=== PATIENT | female | born 1940 | race Asian ===

== ENCOUNTER 2017-09-26 16:41 | Emergency (ER) | payer MEDICARE, OTHER ==
[2017-09-26] MEDS: LIDOCAINE/MYLANTA 40 ML BTL PO (20:09)
[2017-09-26] MEDS: FAMOTIDINE 20 MG TAB PO (20:09)
[2017-09-26] MEDS: BELLADONNA/PHENOBARBITAL TAB PO (20:10)
[2017-09-26 20:16] LABS: ADD MAN DIFF? NO
[2017-09-26 20:19] LABS: BASOPHIL # 0.1 10^3/ul (0.0-0.1); BASOPHILS % 0.4 % (0.0-2.0); EOSINOPHILS # 0.2 10^3/ul (0.0-0.5); EOSINOPHILS % 2.1 % (0.0-7.0); HEMATOCRIT 44.9 % (37.0-47.0); HEMOGLOBIN 16.4 g/dl (12.0-16.0); LYMPHOCYTES # 2.2 10^3/ul (0.8-2.9); LYMPHOCYTES % 19.2 % (15.0-51.0); MEAN CORPUSCULAR HEMOGLOBIN 32.2 pg (29.0-33.0); MEAN CORPUSCULAR HGB CONC 36.5 g/dl (32.0-37.0); MEAN CORPUSCULAR VOLUME 88.2 fl (82.0-101.0); MEAN PLATELET VOLUME 9.6 fl (7.4-10.4); MONOCYTE # 0.7 10^3/ul (0.3-0.9); MONOCYTES % 6.3 % (0.0-11.0); NEUTROPHIL # 8.1 10^3/ul (1.6-7.5); NEUTROPHILS % 71.6 % (39.0-77.0); PLATELET COUNT 331 10^3/UL (140-415); RED BLOOD COUNT 5.09 10^6/ul (4.20-5.40); RED CELL DISTRIBUTION WIDTH 11.4 % (11.5-14.5)
[2017-09-26 20:19] LABS: WHITE BLOOD COUNT 11.3 10^3/ul (4.8-10.8)
[2017-09-26] MEDS: SOD CHLORIDE 0.9% 1,000 ML IV (20:25)
[2017-09-26] MEDS: ONDANSETRON 4 MG INJ IV (20:25)
[2017-09-26] MEDS: KETOROLAC 15 MG INJ IV (20:26)
[2017-09-26 20:32] LABS: ADD UMIC YES; UR ASCORBIC ACID NEGATIVE (NEGATIVE); UR BILIRUBIN (Dip) NEGATIVE (NEGATIVE); UR BLOOD (Dip) NEGATIVE (NEGATIVE); UR CLARITY CLEAR (CLEAR); UR COLOR YELLOW (YELLOW); UR GLUCOSE (Dip) NEGATIVE (NEGATIVE); UR KETONES (Dip) NEGATIVE (NEGATIVE); UR LEUKOCYTE ESTERASE (Dip) 2+ Leu/ul (NEGATIVE); UR NITRITE (Dip) NEGATIVE (NEGATIVE); UR RBC 2 /HPF (0-5); UR SPECIFIC GRAVITY (Dip) 1.017 (1.003-1.030); UR TOTAL PROTEIN (Dip) NEGATIVE (NEGATIVE); UR UROBILINOGEN (Dip) NEGATIVE (NEGATIVE); UR WBC 1 /HPF (0-5)
[2017-09-26 20:40] LABS: ALANINE AMINOTRANSFERASE 20 IU/L (13-69); ALBUMIN/GLOBULIN RATIO 1.02; ALKALINE PHOSPHATASE 106 IU/L (42-121); ANION GAP 18 (8-16); ASPARTATE AMINO TRANSFERASE 32 IU/L (15-46); BILIRUBIN,INDIRECT 0.5 mg/dl (0-1.1); BILIRUBIN,TOTAL 0.5 mg/dl (0.2-1.3); BLOOD UREA NITROGEN 19 mg/dl (7-20); CALCIUM 10.1 mg/dl (8.4-10.2); CARBON DIOXIDE 32 mmol/L (21-31); CHLORIDE 79 mmol/L (97-110); CREATININE 0.76 mg/dl (0.44-1.00); GLUCOSE 139 mg/dl (70-220); LIPASE 71 U/L (23-300); POTASSIUM 4.1 mmol/L (3.5-5.1); SODIUM 125 mmol/L (135-144); TOTAL PROTEIN 9.9 g/dl (6.1-8.1)
[2017-09-26 20:55] LABS: TROPONIN-I < 0.012 ng/ml (0.00-0.12)
[2017-09-26] MEDS: CEPHALEXIN 500 MG CAP PO (22:15)
== END 2017-09-26 22:36 | disposition home or self-care (01) ==
LOC: E/R 22:36
DX: N39.0 Urinary tract infection, site not specified (principal); I10 Essential (primary) hypertension; E11.9 Type 2 diabetes mellitus without complications; I25.10 Atherosclerotic heart disease of native coronary artery without angina pectoris; Z79.84 Long term (current) use of oral hypoglycemic drugs
CPT/HCPCS: 36415; 71045; 80053; 81001; 83690; 84484; 85025; 93005; 96374; 96375; 99285-25

== ENCOUNTER 2017-11-25 22:40 | Emergency (ER) | payer MEDICARE, OTHER ==
[2017-11-26] MEDS: hydrALAzine 20 MG INJ IV (00:46)
[2017-11-26 01:16] LABS: ADD MAN DIFF? NO
[2017-11-26 01:23] LABS: WHITE BLOOD COUNT 7.5 10^3/ul (4.8-10.8)
[2017-11-26 01:23] LABS: BASOPHIL # 0.1 10^3/ul (0.0-0.1); BASOPHILS % 1.1 % (0.0-2.0); EOSINOPHILS # 0.7 10^3/ul (0.0-0.5); EOSINOPHILS % 9.7 % (0.0-7.0); HEMATOCRIT 43.7 % (37.0-47.0); HEMOGLOBIN 14.7 g/dl (12.0-16.0); LYMPHOCYTES # 2.2 10^3/ul (0.8-2.9); LYMPHOCYTES % 29.9 % (15.0-51.0); MEAN CORPUSCULAR HEMOGLOBIN 31.8 pg (29.0-33.0); MEAN CORPUSCULAR HGB CONC 33.6 g/dl (32.0-37.0); MEAN CORPUSCULAR VOLUME 94.6 fl (82.0-101.0); MEAN PLATELET VOLUME 9.8 fl (7.4-10.4); MONOCYTE # 0.5 10^3/ul (0.3-0.9); MONOCYTES % 7.1 % (0.0-11.0); NEUTROPHIL # 3.9 10^3/ul (1.6-7.5); NEUTROPHILS % 51.9 % (39.0-77.0); PLATELET COUNT 299 10^3/UL (140-415); RED BLOOD COUNT 4.62 10^6/ul (4.20-5.40); RED CELL DISTRIBUTION WIDTH 12.4 % (11.5-14.5)
[2017-11-26 01:36] LABS: ALANINE AMINOTRANSFERASE 24 IU/L (13-69); ALBUMIN 4.5 g/dl (3.3-4.9); ALBUMIN/GLOBULIN RATIO 1.12; ALKALINE PHOSPHATASE 122 IU/L (42-121); ANION GAP 14 (8-16); ASPARTATE AMINO TRANSFERASE 25 IU/L (15-46); BILIRUBIN,INDIRECT 0.1 mg/dl (0-1.1); BILIRUBIN,TOTAL 0.1 mg/dl (0.2-1.3); BLOOD UREA NITROGEN 9 mg/dl (7-20); CALCIUM 9.6 mg/dl (8.4-10.2); CARBON DIOXIDE 30 mmol/L (21-31); CHLORIDE 103 mmol/L (97-110); CREATININE 0.75 mg/dl (0.44-1.00); GLUCOSE 124 mg/dl (70-220); POTASSIUM 3.5 mmol/L (3.5-5.1); SODIUM 143 mmol/L (135-144); TOTAL PROTEIN 8.5 g/dl (6.1-8.1)
[2017-11-26 01:47] LABS: B-TYPE NATRIURETIC PEPTIDE 219 PG/ML (0-450); TROPONIN-I < 0.010 ng/ml (0.000-0.120)
[2017-11-26] MEDS ORDERED: MECLIZINE 25 MG TAB PO (05:00)
== END 2017-11-26 04:33 | disposition home or self-care (01) ==
LOC: E/R 22:40
DX: I16.0 Hypertensive urgency (principal); I10 Essential (primary) hypertension; E11.9 Type 2 diabetes mellitus without complications; Z79.84 Long term (current) use of oral hypoglycemic drugs
CPT/HCPCS: 36415; 70450; 71045; 80053; 83880; 84484; 85025; 93005; 96374; 99285-25

== ENCOUNTER 2018-08-27 02:59 | Observation (INO) | payer MEDICARE, OTHER ==
[2018-08-27 06:56] LABS: ADD MAN DIFF? NO
[2018-08-27 06:59] LABS: BASOPHIL # 0.1 10^3/ul (0.0-0.1); EOSINOPHILS # 0.3 10^3/ul (0.0-0.5); EOSINOPHILS % 4.1 % (0.0-7.0); HEMATOCRIT 46.4 % (37.0-47.0); HEMOGLOBIN 15.9 g/dl (12.0-16.0); LYMPHOCYTES # 1.9 10^3/ul (0.8-2.9); LYMPHOCYTES % 26.7 % (15.0-51.0); MEAN CORPUSCULAR HEMOGLOBIN 31.7 pg (29.0-33.0); MEAN CORPUSCULAR HGB CONC 34.3 g/dl (32.0-37.0); MEAN CORPUSCULAR VOLUME 92.6 fl (82.0-101.0); MEAN PLATELET VOLUME 9.4 fl (7.4-10.4); MONOCYTE # 0.5 10^3/ul (0.3-0.9); MONOCYTES % 7.6 % (0.0-11.0); NEUTROPHIL # 4.3 10^3/ul (1.6-7.5); NEUTROPHILS % 60.3 % (39.0-77.0); PLATELET COUNT 337 10^3/UL (140-415); RED BLOOD COUNT 5.01 10^6/ul (4.20-5.40)
[2018-08-27 06:59] LABS: WHITE BLOOD COUNT 7.1 10^3/ul (4.8-10.8)
[2018-08-27 07:00] LABS: ADD UMIC YES; UR ASCORBIC ACID NEGATIVE (NEGATIVE); UR BILIRUBIN (Dip) NEGATIVE (NEGATIVE); UR BLOOD (Dip) 1+ mg/dL (NEGATIVE); UR CLARITY CLEAR (CLEAR); UR COLOR STRAW (YELLOW); UR GLUCOSE (Dip) NEGATIVE (NEGATIVE); UR KETONES (Dip) NEGATIVE (NEGATIVE); UR LEUKOCYTE ESTERASE (Dip) 2+ Leu/ul (NEGATIVE); UR NITRITE (Dip) NEGATIVE (NEGATIVE); UR RBC 3 /HPF (0-5); UR SPECIFIC GRAVITY (Dip) 1.006 (1.003-1.030); UR TOTAL PROTEIN (Dip) NEGATIVE (NEGATIVE); UR UROBILINOGEN (Dip) NEGATIVE (NEGATIVE); UR WBC 1 /HPF (0-5)
[2018-08-27 07:20] LABS: ALANINE AMINOTRANSFERASE 31 IU/L (13-69); ALBUMIN 4.9 g/dl (3.3-4.9); ALBUMIN/GLOBULIN RATIO 1.11; ALKALINE PHOSPHATASE 143 IU/L (42-121); ANION GAP 13 (5-13); ASPARTATE AMINO TRANSFERASE 34 IU/L (15-46); BILIRUBIN,INDIRECT 0.5 mg/dl (0-1.1); BILIRUBIN,TOTAL 0.5 mg/dl (0.2-1.3); BLOOD UREA NITROGEN 11 mg/dl (7-20); CALCIUM 10.3 mg/dl (8.4-10.2); CARBON DIOXIDE 31 mmol/L (21-31); CHLORIDE 93 mmol/L (97-110); CREATININE 0.79 mg/dl (0.44-1.00); GLUCOSE 124 mg/dl (70-220); LIPASE 75 U/L (23-300); POTASSIUM 4.5 mmol/L (3.5-5.1); SODIUM 137 mmol/L (135-144); TOTAL PROTEIN 9.3 g/dl (6.1-8.1)
[2018-08-27 07:31] LABS: TROPONIN-I < 0.012 ng/ml (0.000-0.120)
[2018-08-27] MEDS: DILTIAZEM 25 MG INJ IV (07:56)
[2018-08-27] MEDS ORDERED: NACL 0.9% 3 ML SYG IV (13:30)
[2018-08-27] MEDS ORDERED: DOCUSATE SODIUM 100 MG CAP PO (13:30)
[2018-08-27] MEDS ORDERED: ONDANSETRON 4 MG INJ IV (13:30)
[2018-08-27] MEDS ORDERED: DILTIAZEM 25 MG INJ IV ×2 (13:30→17:30)
[2018-08-27] MEDS ORDERED: DEXTROSE 50% 50 ML SYRINGE IV ×2 (14:00)
[2018-08-27] MEDS ORDERED: GLUCAGON 1 MG INJ IM (14:00)
[2018-08-27] MEDS ORDERED: GLUCOSE GEL 15 GRAM TUBE BUCCAL (14:00)
[2018-08-27] MEDS ORDERED: GLUCOSE GEL 15 GRAM TUBE PO ×2 (14:00)
[2018-08-27] MEDS: PANTOPRAZOLE 40 MG INJ IV (14:22)
[2018-08-27 15:25] LABS: CREATINE KINASE 41 IU/L (23-200)
[2018-08-27 15:38] LABS: CK INDEX 1.3; CK-MB 0.55 ng/ml (0.0-2.4); TROPONIN-I < 0.012 ng/ml (0.000-0.120)
[2018-08-27] MEDS: INSULIN ASPART [NOVOLOG] 3 ML PEN SC ×2 (18:00→22:00)
[2018-08-27 18:12] LABS: B-TYPE NATRIURETIC PEPTIDE 859 PG/ML (0-450)
[2018-08-27] MEDS: hydrALAzine 20 MG INJ IV (18:45)
[2018-08-27] MEDS: SOD CHLORIDE 0.9% 250 ML IV (19:23)
[2018-08-27] MEDS: ENOXAPARIN 60 MG/0.6 ML SYG SC (21:10)
[2018-08-27 22:03] LABS: CREATINE KINASE 38 IU/L (23-200)
[2018-08-27 22:16] LABS: CK INDEX 1.3; TROPONIN-I < 0.012 ng/ml (0.000-0.120)
[2018-08-28] MEDS: ACCU-CHEK XX (02:00)
[2018-08-28 05:40] LABS: ADD MAN DIFF? NO
[2018-08-28 05:52] LABS: WHITE BLOOD COUNT 11.2 10^3/ul (4.8-10.8)
[2018-08-28 05:52] LABS: BASOPHILS % 0.4 % (0.0-2.0); EOSINOPHILS % 0.1 % (0.0-7.0); HEMATOCRIT 41.1 % (37.0-47.0); HEMOGLOBIN 14.1 g/dl (12.0-16.0); LYMPHOCYTES # 1.8 10^3/ul (0.8-2.9); LYMPHOCYTES % 15.7 % (15.0-51.0); MEAN CORPUSCULAR HEMOGLOBIN 31.8 pg (29.0-33.0); MEAN CORPUSCULAR HGB CONC 34.3 g/dl (32.0-37.0); MEAN CORPUSCULAR VOLUME 92.8 fl (82.0-101.0); MEAN PLATELET VOLUME 9.8 fl (7.4-10.4); MONOCYTE # 0.5 10^3/ul (0.3-0.9); NEUTROPHIL # 8.9 10^3/ul (1.6-7.5); NEUTROPHILS % 79.4 % (39.0-77.0); PLATELET COUNT 322 10^3/UL (140-415); RED BLOOD COUNT 4.43 10^6/ul (4.20-5.40); RED CELL DISTRIBUTION WIDTH 12.3 % (11.5-14.5)
[2018-08-28] MEDS: PANTOPRAZOLE 40 MG INJ IV (06:01)
[2018-08-28 06:26] LABS: CHOL/HDL RATIO 4.2 RATIO; CHOLESTEROL 204 mg/dl (100-200); HDL CHOLESTEROL 48 mg/dl (33-92); LDL CHOLESTEROL,CALCULATED 132 mg/dl; MAGNESIUM 1.9 mg/dl (1.7-2.5); TRIGLYCERIDES 118 mg/dl (0-149)
[2018-08-28 06:33] LABS: ALANINE AMINOTRANSFERASE 32 IU/L (13-69); ALBUMIN 4.1 g/dl (3.3-4.9); ALKALINE PHOSPHATASE 92 IU/L (42-121); ANION GAP 9 (5-13); ASPARTATE AMINO TRANSFERASE 23 IU/L (15-46); BILIRUBIN,INDIRECT 0.6 mg/dl (0-1.1); BILIRUBIN,TOTAL 0.6 mg/dl (0.2-1.3); BLOOD UREA NITROGEN 15 mg/dl (7-20); CALCIUM 9.5 mg/dl (8.4-10.2); CARBON DIOXIDE 28 mmol/L (21-31); CHLORIDE 100 mmol/L (97-110); CREATININE 0.96 mg/dl (0.44-1.00); GLUCOSE 129 mg/dl (70-220); POTASSIUM 4.5 mmol/L (3.5-5.1); SODIUM 137 mmol/L (135-144); TOTAL PROTEIN 7.5 g/dl (6.1-8.1)
[2018-08-28 06:39] LABS: THYROID STIMULATING HORMONE 0.902 MIU/L (0.465-4.680)
[2018-08-28] MEDS: INSULIN ASPART [NOVOLOG] 3 ML PEN SC ×4 (07:55→21:00)
[2018-08-28] MEDS ORDERED: BISACODYL (EC) 5 MG TAB PO ×2 (09:00→09:41)
[2018-08-28] MEDS: POLYETHYLENE GLYCOL 17 GM PACKET PO (09:51)
[2018-08-28] MEDS: METOPROLOL (XL) 25 MG TAB PO (09:52)
[2018-08-28] MEDS: ALLOPURINOL 300 MG TAB PO (09:52)
[2018-08-28] MEDS: PEG/ELECTROLYTES 4L BTL PO ×2 (18:02→20:00)
[2018-08-28] MEDS: BISACODYL (EC) 5 MG TAB PO ×2 (18:02→21:28)
[2018-08-28] MEDS: FAMOTIDINE 20 MG INJ IV (21:28)
[2018-08-29] MEDS: ACCU-CHEK XX (01:37)
[2018-08-29 05:42] LABS: ADD MAN DIFF? NO
[2018-08-29 05:46] LABS: BASOPHIL # 0.1 10^3/ul (0.0-0.1); BASOPHILS % 1.2 % (0.0-2.0); EOSINOPHILS # 0.4 10^3/ul (0.0-0.5); EOSINOPHILS % 6.8 % (0.0-7.0); HEMATOCRIT 40.2 % (37.0-47.0); HEMOGLOBIN 13.4 g/dl (12.0-16.0); LYMPHOCYTES # 1.8 10^3/ul (0.8-2.9); LYMPHOCYTES % 32.2 % (15.0-51.0); MEAN CORPUSCULAR HEMOGLOBIN 31.7 pg (29.0-33.0); MEAN CORPUSCULAR HGB CONC 33.3 g/dl (32.0-37.0); MEAN PLATELET VOLUME 9.4 fl (7.4-10.4); MONOCYTE # 0.5 10^3/ul (0.3-0.9); MONOCYTES % 8.9 % (0.0-11.0); NEUTROPHIL # 2.9 10^3/ul (1.6-7.5); NEUTROPHILS % 50.7 % (39.0-77.0); PLATELET COUNT 287 10^3/UL (140-415); RED BLOOD COUNT 4.23 10^6/ul (4.20-5.40); RED CELL DISTRIBUTION WIDTH 12.4 % (11.5-14.5)
[2018-08-29 05:46] LABS: WHITE BLOOD COUNT 5.6 10^3/ul (4.8-10.8)
[2018-08-29 06:04] LABS: INR 0.86; PROTIME 11.8 Sec (11.9-14.9); PT RATIO 0.9
[2018-08-29] MEDS: INSULIN ASPART [NOVOLOG] 3 ML PEN SC ×4 (08:00→21:00)
[2018-08-29] MEDS: POLYETHYLENE GLYCOL 17 GM PACKET PO (08:05)
[2018-08-29] MEDS: METOPROLOL (XL) 25 MG TAB PO (08:06)
[2018-08-29] MEDS: ALLOPURINOL 300 MG TAB PO (08:06)
[2018-08-29] MEDS: FAMOTIDINE 20 MG INJ IV ×2 (08:08→21:20)
[2018-08-29] MEDS ORDERED: ONDANSETRON 4 MG INJ IV (11:30)
[2018-08-29] MEDS ORDERED: HYDROmorphONE 1 MG/5 ML IV SYRINGE IV (11:30)
[2018-08-29] MEDS: CEFTRIAXONE 1 GM/50 ML (PMX) 50 ML IVPB (14:23)
[2018-08-29] MEDS: EPHEDrine 25 MG/5 ML SYG (19:15)
[2018-08-29] MEDS: PROPOFOL 40 ML (19:15)
[2018-08-29] MEDS: LIDOCAINE 2% (SDV) 5 ML INJ (19:16)
[2018-08-29] MEDS: APIXABAN 5 MG TABLET PO (21:20)
[2018-08-30] MEDS: ACCU-CHEK XX (01:42)
[2018-08-30 05:55] LABS: ADD MAN DIFF? NO
[2018-08-30 06:01] LABS: BASOPHIL # 0.1 10^3/ul (0.0-0.1); BASOPHILS % 1.4 % (0.0-2.0); EOSINOPHILS # 0.4 10^3/ul (0.0-0.5); EOSINOPHILS % 6.5 % (0.0-7.0); HEMATOCRIT 40.6 % (37.0-47.0); HEMOGLOBIN 13.4 g/dl (12.0-16.0); LYMPHOCYTES # 1.9 10^3/ul (0.8-2.9); LYMPHOCYTES % 29.3 % (15.0-51.0); MEAN CORPUSCULAR HEMOGLOBIN 31.8 pg (29.0-33.0); MEAN CORPUSCULAR VOLUME 96.4 fl (82.0-101.0); MEAN PLATELET VOLUME 9.7 fl (7.4-10.4); MONOCYTE # 0.5 10^3/ul (0.3-0.9); NEUTROPHIL # 3.6 10^3/ul (1.6-7.5); NEUTROPHILS % 55.6 % (39.0-77.0); PLATELET COUNT 286 10^3/UL (140-415); RED BLOOD COUNT 4.21 10^6/ul (4.20-5.40); RED CELL DISTRIBUTION WIDTH 12.4 % (11.5-14.5)
[2018-08-30 06:01] LABS: WHITE BLOOD COUNT 6.5 10^3/ul (4.8-10.8)
[2018-08-30 06:36] LABS: ANION GAP 10 (5-13); BLOOD UREA NITROGEN 14 mg/dl (7-20); CALCIUM 9.3 mg/dl (8.4-10.2); CARBON DIOXIDE 27 mmol/L (21-31); CHLORIDE 104 mmol/L (97-110); CREATININE 0.89 mg/dl (0.44-1.00); GLUCOSE 145 mg/dl (70-220); POTASSIUM 4.1 mmol/L (3.5-5.1); SODIUM 141 mmol/L (135-144)
[2018-08-30] MEDS: INSULIN ASPART [NOVOLOG] 3 ML PEN SC ×2 (08:00→12:00)
[2018-08-30] MEDS: ALLOPURINOL 300 MG TAB PO (08:03)
[2018-08-30] MEDS: POLYETHYLENE GLYCOL 17 GM PACKET PO (08:03)
[2018-08-30] MEDS: METOPROLOL (XL) 25 MG TAB PO (08:04)
[2018-08-30] MEDS: APIXABAN 5 MG TABLET PO (08:04)
[2018-08-30] MEDS: FAMOTIDINE 20 MG INJ IV (08:05)
[2018-08-30] MEDS ORDERED: ENOXAPARIN 40 MG/0.4 ML SYG SC (09:00)
[2018-08-30 11:04] LABS: HEMOGLOBIN A1C 6.3 % (0-5.9)
== END 2018-08-30 14:00 | disposition home or self-care (01) ==
LOC: E/R 02:59 → 6WM 10:57
DX: I48.0 Paroxysmal atrial fibrillation (principal); K29.30 Chronic superficial gastritis without bleeding; I10 Essential (primary) hypertension; E78.5 Hyperlipidemia, unspecified; M10.9 Gout, unspecified; E11.9 Type 2 diabetes mellitus without complications; Z79.01 Long term (current) use of anticoagulants; E83.52 Hypercalcemia; R42 Dizziness and giddiness; K59.00 Constipation, unspecified; E66.3 Overweight; Z68.26 Body mass index [BMI] 26.0-26.9, adult
CPT/HCPCS: 36415; 74176; 74181; 80048; 80053; 80061; 81001; 82550; 82553; 82962; 83036; 83690; 83735; 83880; 84100; 84443; 84484; 85025; 85610; 85730; 88305; 88312; 93005; 93306; 99291-25; G0378

== ENCOUNTER 2018-10-12 22:20 | Emergency (ER) | payer MEDICARE, OTHER ==
[2018-10-12] MEDS: morphine 4 MG/ML VIAL IV ×2 (22:48→23:08)
[2018-10-12] MEDS: ONDANSETRON 4 MG INJ IV (22:48)
[2018-10-12 22:54] LABS: ADD MAN DIFF? NO
[2018-10-12 22:56] LABS: WHITE BLOOD COUNT 8.2 10^3/ul (4.8-10.8)
[2018-10-12 22:56] LABS: BASOPHIL # 0.1 10^3/ul (0.0-0.1); BASOPHILS % 0.6 % (0.0-2.0); EOSINOPHILS # 0.4 10^3/ul (0.0-0.5); EOSINOPHILS % 4.8 % (0.0-7.0); HEMATOCRIT 37.3 % (37.0-47.0); LYMPHOCYTES # 2.1 10^3/ul (0.8-2.9); LYMPHOCYTES % 25.1 % (15.0-51.0); MEAN CORPUSCULAR HEMOGLOBIN 31.4 pg (29.0-33.0); MEAN CORPUSCULAR HGB CONC 34.9 g/dl (32.0-37.0); MEAN CORPUSCULAR VOLUME 90.1 fl (82.0-101.0); MEAN PLATELET VOLUME 9.4 fl (7.4-10.4); MONOCYTE # 0.7 10^3/ul (0.3-0.9); MONOCYTES % 8.7 % (0.0-11.0); NEUTROPHIL # 4.9 10^3/ul (1.6-7.5); NEUTROPHILS % 60.2 % (39.0-77.0); PLATELET COUNT 297 10^3/UL (140-415); RED BLOOD COUNT 4.14 10^6/ul (4.20-5.40); RED CELL DISTRIBUTION WIDTH 11.2 % (11.5-14.5)
[2018-10-12 23:19] LABS: INR 0.97
[2018-10-12 23:22] LABS: ALANINE AMINOTRANSFERASE 25 IU/L (13-69); ALBUMIN 4.1 g/dl (3.3-4.9); ALBUMIN/GLOBULIN RATIO 1.28; ALKALINE PHOSPHATASE 82 IU/L (42-121); ANION GAP 10 (5-13); ASPARTATE AMINO TRANSFERASE 22 IU/L (15-46); BILIRUBIN,INDIRECT 0.4 mg/dl (0-1.1); BILIRUBIN,TOTAL 0.4 mg/dl (0.2-1.3); BLOOD UREA NITROGEN 14 mg/dl (7-20); CALCIUM 9.2 mg/dl (8.4-10.2); CARBON DIOXIDE 30 mmol/L (21-31); CHLORIDE 85 mmol/L (97-110); CREATININE 0.82 mg/dl (0.44-1.00); GLUCOSE 154 mg/dl (70-220); LIPASE 39 U/L (23-300); POTASSIUM 3.8 mmol/L (3.5-5.1); SODIUM 125 mmol/L (135-144); TOTAL PROTEIN 7.3 g/dl (6.1-8.1)
[2018-10-12 23:33] LABS: TROPONIN-I < 0.012 ng/ml (0.000-0.120)
[2018-10-13 00:51] LABS: ADD UMIC YES; UR ASCORBIC ACID NEGATIVE (NEGATIVE); UR BACTERIA FEW /HPF (NONE SEEN); UR BILIRUBIN (Dip) NEGATIVE (NEGATIVE); UR BLOOD (Dip) 1+ mg/dL (NEGATIVE); UR CLARITY CLEAR (CLEAR); UR COLOR STRAW (YELLOW); UR GLUCOSE (Dip) NEGATIVE (NEGATIVE); UR KETONES (Dip) NEGATIVE (NEGATIVE); UR LEUKOCYTE ESTERASE (Dip) 1+ Leu/ul (NEGATIVE); UR NITRITE (Dip) NEGATIVE (NEGATIVE); UR RBC 1 /HPF (0-5); UR SPECIFIC GRAVITY (Dip) 1.005 (1.003-1.030); UR TOTAL PROTEIN (Dip) NEGATIVE (NEGATIVE); UR UROBILINOGEN (Dip) NEGATIVE (NEGATIVE); UR WBC 1 /HPF (0-5)
== END 2018-10-13 02:00 | disposition home or self-care (01) ==
LOC: E/R 10-13 02:00
DX: R10.9 Unspecified abdominal pain (principal); E87.1 Hypo-osmolality and hyponatremia; I10 Essential (primary) hypertension; R11.0 Nausea; Z79.01 Long term (current) use of anticoagulants
CPT/HCPCS: 36415; 71045; 74176; 80053; 81001; 83690; 84484; 85025; 85610; 93005; 96374; 99285-25

== ENCOUNTER 2018-10-15 18:00 | Emergency (ER) | payer MEDICARE, OTHER ==
[2018-10-15] MEDS: SOD CHLORIDE 0.9% 1,000 ML IV (19:54)
[2018-10-15] MEDS: METOCLOPRAMIDE 10 MG INJ IV (19:54)
[2018-10-15 19:56] LABS: ADD MAN DIFF? NO
[2018-10-15 20:02] LABS: WHITE BLOOD COUNT 8.5 10^3/ul (4.8-10.8)
[2018-10-15 20:02] LABS: BASOPHIL # 0.1 10^3/ul (0.0-0.1); BASOPHILS % 0.6 % (0.0-2.0); EOSINOPHILS # 0.4 10^3/ul (0.0-0.5); EOSINOPHILS % 4.4 % (0.0-7.0); HEMATOCRIT 42.2 % (37.0-47.0); HEMOGLOBIN 14.9 g/dl (12.0-16.0); LYMPHOCYTES # 2.1 10^3/ul (0.8-2.9); LYMPHOCYTES % 24.1 % (15.0-51.0); MEAN CORPUSCULAR HEMOGLOBIN 31.5 pg (29.0-33.0); MEAN CORPUSCULAR HGB CONC 35.3 g/dl (32.0-37.0); MEAN CORPUSCULAR VOLUME 89.2 fl (82.0-101.0); MEAN PLATELET VOLUME 9.2 fl (7.4-10.4); MONOCYTE # 0.8 10^3/ul (0.3-0.9); MONOCYTES % 8.8 % (0.0-11.0); NEUTROPHIL # 5.3 10^3/ul (1.6-7.5); NEUTROPHILS % 61.6 % (39.0-77.0); PLATELET COUNT 390 10^3/UL (140-415); RED BLOOD COUNT 4.73 10^6/ul (4.20-5.40)
[2018-10-15 20:17] LABS: ADD UMIC YES; UR ASCORBIC ACID NEGATIVE (NEGATIVE); UR BILIRUBIN (Dip) NEGATIVE (NEGATIVE); UR BLOOD (Dip) NEGATIVE (NEGATIVE); UR CLARITY CLEAR (CLEAR); UR COLOR STRAW (YELLOW); UR GLUCOSE (Dip) NEGATIVE (NEGATIVE); UR KETONES (Dip) NEGATIVE (NEGATIVE); UR LEUKOCYTE ESTERASE (Dip) 1+ Leu/ul (NEGATIVE); UR NITRITE (Dip) NEGATIVE (NEGATIVE); UR RBC 2 /HPF (0-5); UR SPECIFIC GRAVITY (Dip) 1.006 (1.003-1.030); UR TOTAL PROTEIN (Dip) NEGATIVE (NEGATIVE); UR UROBILINOGEN (Dip) NEGATIVE (NEGATIVE); UR WBC 4 /HPF (0-5)
[2018-10-15 20:34] LABS: ALANINE AMINOTRANSFERASE 16 IU/L (13-69); ALBUMIN 4.4 g/dl (3.3-4.9); ALBUMIN/GLOBULIN RATIO 1.12; ALKALINE PHOSPHATASE 117 IU/L (42-121); ANION GAP 11 (5-13); ASPARTATE AMINO TRANSFERASE 21 IU/L (15-46); BILIRUBIN,INDIRECT 0.2 mg/dl (0-1.1); BILIRUBIN,TOTAL 0.2 mg/dl (0.2-1.3); BLOOD UREA NITROGEN 11 mg/dl (7-20); CALCIUM 9.9 mg/dl (8.4-10.2); CARBON DIOXIDE 32 mmol/L (21-31); CHLORIDE 85 mmol/L (97-110); CREATININE 0.74 mg/dl (0.44-1.00); GLUCOSE 110 mg/dl (70-220); LIPASE 46 U/L (23-300); POTASSIUM 3.6 mmol/L (3.5-5.1); SODIUM 128 mmol/L (135-144); TOTAL PROTEIN 8.3 g/dl (6.1-8.1)
== END 2018-10-15 22:26 | disposition home or self-care (01) ==
LOC: E/R 18:00
DX: E87.1 Hypo-osmolality and hyponatremia (principal); R42 Dizziness and giddiness; I10 Essential (primary) hypertension; E11.9 Type 2 diabetes mellitus without complications; Z79.84 Long term (current) use of oral hypoglycemic drugs
CPT/HCPCS: 36415; 71045; 80053; 81001; 83690; 85025; 93005; 96374; 99285-25

== ENCOUNTER 2019-02-11 07:13 | Inpatient (IN) | payer MEDICARE, OTHER ==
[2019-02-11] MEDS: NITROGLYCERIN 2% 1 GM OINT PKT TD (07:47)
[2019-02-11] MEDS: METOPROLOL 5 MG INJ IV ×2 (07:47→08:22)
[2019-02-11] MEDS: ASPIRIN 325 MG TAB PO (07:47)
[2019-02-11 08:02] LABS: ADD MAN DIFF? NO
[2019-02-11 08:05] LABS: BASOPHIL # 0.1 10^3/ul (0.0-0.1); BASOPHILS % 0.8 % (0.0-2.0); EOSINOPHILS # 0.5 10^3/ul (0.0-0.5); EOSINOPHILS % 6.1 % (0.0-7.0); HEMATOCRIT 47.5 % (37.0-47.0); HEMOGLOBIN 16.3 g/dl (12.0-16.0); LYMPHOCYTES # 2.2 10^3/ul (0.8-2.9); LYMPHOCYTES % 29.8 % (15.0-51.0); MEAN CORPUSCULAR HEMOGLOBIN 31.7 pg (29.0-33.0); MEAN CORPUSCULAR HGB CONC 34.3 g/dl (32.0-37.0); MEAN CORPUSCULAR VOLUME 92.2 fl (82.0-101.0); MEAN PLATELET VOLUME 10.1 fl (7.4-10.4); MONOCYTE # 0.5 10^3/ul (0.3-0.9); MONOCYTES % 6.4 % (0.0-11.0); NEUTROPHIL # 4.2 10^3/ul (1.6-7.5); NEUTROPHILS % 56.6 % (39.0-77.0); PLATELET COUNT 324 10^3/UL (140-415); RED BLOOD COUNT 5.15 10^6/ul (4.20-5.40)
[2019-02-11 08:05] LABS: WHITE BLOOD COUNT 7.4 10^3/ul (4.8-10.8)
[2019-02-11 08:17] LABS: POSITIVE DIFF @See below
[2019-02-11 08:22] LABS: ALANINE AMINOTRANSFERASE 15 IU/L (13-69); ALBUMIN 4.8 g/dl (3.3-4.9); ALBUMIN/GLOBULIN RATIO 1.11; ALKALINE PHOSPHATASE 108 IU/L (42-121); ANION GAP 10 (5-13); ASPARTATE AMINO TRANSFERASE 35 IU/L (15-46); BILIRUBIN,INDIRECT 0.8 mg/dl (0-1.1); BILIRUBIN,TOTAL 0.8 mg/dl (0.2-1.3); BLOOD UREA NITROGEN 8 mg/dl (7-20); CALCIUM 9.9 mg/dl (8.4-10.2); CARBON DIOXIDE 28 mmol/L (21-31); CHLORIDE 98 mmol/L (97-110); CREATININE 0.71 mg/dl (0.44-1.00); GLUCOSE 143 mg/dl (70-220); POTASSIUM 3.9 mmol/L (3.5-5.1); SODIUM 136 mmol/L (135-144); TOTAL PROTEIN 9.1 g/dl (6.1-8.1)
[2019-02-11 08:23] LABS: INR 0.82; PARTIAL THROMBOPLASTIN TIME 25.3 Sec (23.0-35.0); PROTIME 11.4 Sec (11.9-14.9); PT RATIO 0.9
[2019-02-11 08:33] LABS: TROPONIN-I < 0.012 ng/ml (0.000-0.120)
[2019-02-11] MEDS ORDERED: ONDANSETRON 4 MG INJ IV (09:00)
[2019-02-11] MEDS ORDERED: ACETAMINOPHEN 325 MG TAB PO ×2 (09:00→12:30)
[2019-02-11] MEDS ORDERED: ZOLPIDEM 5 MG TAB PO (12:30)
[2019-02-11] MEDS ORDERED: DOCUSATE SODIUM 100 MG CAP PO (12:30)
[2019-02-11] MEDS ORDERED: NACL 0.9% 3 ML SYG IV (12:30)
[2019-02-11] MEDS ORDERED: morphine 2 MG INJ IV (12:30)
[2019-02-11] MEDS ORDERED: HYDROCODONE/APAP (5/325) TAB PO (12:30)
[2019-02-11] MEDS ORDERED: NAPHAZOLINE/PHENIRAMINE 15 ML OPH BOTH EYES (13:00)
[2019-02-11] MEDS: MAGNESIUM OXIDE 400 MG TAB PO (13:42)
[2019-02-11] MEDS: ISOSORBIDE MONONITRATE(SR)30 MG TAB PO ×2 (13:42→22:26)
[2019-02-11] MEDS: LOSARTAN 50 MG TAB PO (13:42)
[2019-02-11 14:13] LABS: MAGNESIUM 1.9 mg/dl (1.7-2.5)
[2019-02-11] MEDS ORDERED: DILTIAZEM 25 MG INJ IV (14:30)
[2019-02-11 15:34] LABS: CREATINE KINASE 46 IU/L (23-200)
[2019-02-11 15:47] LABS: CK INDEX 0.5; CK-MB < 0.22 ng/ml (0.0-2.4); TROPONIN-I < 0.012 ng/ml (0.000-0.120)
[2019-02-11] MEDS: INSULIN ASPART [NOVOLOG] 3 ML PEN SC ×2 (19:00→21:00)
[2019-02-11 21:55] LABS: CREATINE KINASE 37 IU/L (23-200)
[2019-02-11 22:08] LABS: CK INDEX 0.9; CK-MB 0.34 ng/ml (0.0-2.4); TROPONIN-I < 0.012 ng/ml (0.000-0.120)
[2019-02-11] MEDS: APIXABAN 5 MG TABLET PO (22:25)
[2019-02-11] MEDS: AMIODARONE 200 MG TAB PO (22:25)
[2019-02-12] MEDS: ACCU-CHEK XX (02:00)
[2019-02-12] MEDS: PANTOPRAZOLE (EC) 40 MG TAB PO (05:28)
[2019-02-12 06:21] LABS: PHOSPHORUS 4.2 mg/dl (2.5-4.9)
[2019-02-12 06:21] LABS: CHOL/HDL RATIO 5.6 RATIO; CHOLESTEROL 226 mg/dl (100-200); HDL CHOLESTEROL 40 mg/dl (33-92); LDL CHOLESTEROL,CALCULATED 157 mg/dl; MAGNESIUM 2.1 mg/dl (1.7-2.5); TRIGLYCERIDES 144 mg/dl (0-149)
[2019-02-12 06:44] LABS: HEMOGLOBIN A1C 6.1 % (0-5.9)
[2019-02-12] MEDS: AMIODARONE 200 MG TAB PO ×3 (07:57→20:22)
[2019-02-12] MEDS: ISOSORBIDE MONONITRATE(SR)30 MG TAB PO (07:57)
[2019-02-12] MEDS: INSULIN ASPART [NOVOLOG] 3 ML PEN SC ×4 (07:57→20:25)
[2019-02-12] MEDS: APIXABAN 5 MG TABLET PO ×2 (07:58→20:25)
[2019-02-12] MEDS: MAGNESIUM OXIDE 400 MG TAB PO (07:58)
[2019-02-12] MEDS: LOSARTAN 50 MG TAB PO (07:58)
[2019-02-12] MEDS: METOPROLOL (XL) 100 MG TAB PO (08:03)
[2019-02-12] MEDS: ONDANSETRON 4 MG INJ IV ×2 (09:56→15:55)
[2019-02-12] MEDS: AL HYDROX/MG HYDROX/SIMETH 30 ML CUP PO (23:05)
[2019-02-13] MEDS: ACCU-CHEK XX (01:02)
[2019-02-13] MEDS: PANTOPRAZOLE (EC) 40 MG TAB PO ×2 (05:55→07:14)
[2019-02-13] MEDS: INSULIN ASPART [NOVOLOG] 3 ML PEN SC ×4 (08:00→20:23)
[2019-02-13] MEDS: METOPROLOL (XL) 100 MG TAB PO (08:30)
[2019-02-13] MEDS: LOSARTAN 50 MG TAB PO (08:30)
[2019-02-13] MEDS: MAGNESIUM OXIDE 400 MG TAB PO (08:30)
[2019-02-13] MEDS: APIXABAN 5 MG TABLET PO ×2 (08:30→20:22)
[2019-02-13] MEDS: AMIODARONE 200 MG TAB PO ×3 (08:31→20:20)
[2019-02-13] MEDS: ISOSORBIDE MONONITRATE(SR)30 MG TAB PO (08:31)
[2019-02-13] MEDS: REGADENOSON 0.4 MG/5 ML SYG (14:15)
[2019-02-13] MEDS: AL HYDROX/MG HYDROX/SIMETH 30 ML CUP PO (20:22)
[2019-02-14] MEDS: ACCU-CHEK XX (02:00)
[2019-02-14 05:22] LABS: ADD MAN DIFF? NO
[2019-02-14 05:24] LABS: BASOPHIL # 0.1 10^3/ul (0.0-0.1); BASOPHILS % 0.5 % (0.0-2.0); EOSINOPHILS # 0.2 10^3/ul (0.0-0.5); EOSINOPHILS % 1.8 % (0.0-7.0); HEMATOCRIT 42.8 % (37.0-47.0); HEMOGLOBIN 14.5 g/dl (12.0-16.0); LYMPHOCYTES # 1.8 10^3/ul (0.8-2.9); LYMPHOCYTES % 15.6 % (15.0-51.0); MEAN CORPUSCULAR HEMOGLOBIN 31.9 pg (29.0-33.0); MEAN CORPUSCULAR HGB CONC 33.9 g/dl (32.0-37.0); MEAN CORPUSCULAR VOLUME 94.1 fl (82.0-101.0); MEAN PLATELET VOLUME 9.7 fl (7.4-10.4); MONOCYTES % 8.6 % (0.0-11.0); NEUTROPHIL # 8.4 10^3/ul (1.6-7.5); NEUTROPHILS % 73.2 % (39.0-77.0); PLATELET COUNT 334 10^3/UL (140-415); RED BLOOD COUNT 4.55 10^6/ul (4.20-5.40); RED CELL DISTRIBUTION WIDTH 12.1 % (11.5-14.5)
[2019-02-14 05:24] LABS: WHITE BLOOD COUNT 11.4 10^3/ul (4.8-10.8)
[2019-02-14] MEDS: PANTOPRAZOLE (EC) 40 MG TAB PO (05:33)
[2019-02-14 05:57] LABS: ANION GAP 6 (5-13); BLOOD UREA NITROGEN 21 mg/dl (7-20); CALCIUM 9.5 mg/dl (8.4-10.2); CARBON DIOXIDE 31 mmol/L (21-31); CHLORIDE 97 mmol/L (97-110); CREATININE 0.89 mg/dl (0.44-1.00); GLUCOSE 104 mg/dl (70-220); POTASSIUM 4.5 mmol/L (3.5-5.1); SODIUM 134 mmol/L (135-144)
[2019-02-14] MEDS: INSULIN ASPART [NOVOLOG] 3 ML PEN SC ×4 (07:34→20:11)
[2019-02-14] MEDS: METOPROLOL (XL) 100 MG TAB PO (07:35)
[2019-02-14] MEDS: APIXABAN 5 MG TABLET PO ×2 (07:35→20:11)
[2019-02-14] MEDS: LOSARTAN 50 MG TAB PO (07:35)
[2019-02-14] MEDS: MAGNESIUM OXIDE 400 MG TAB PO (07:35)
[2019-02-14] MEDS: ISOSORBIDE MONONITRATE(SR)30 MG TAB PO (07:35)
[2019-02-14] MEDS: AMIODARONE 200 MG TAB PO ×3 (07:36→20:10)
[2019-02-14] MEDS ORDERED: DEXTROSE 50% 50 ML SYRINGE IV ×2 (13:30)
[2019-02-14] MEDS ORDERED: GLUCOSE GEL 15 GRAM TUBE PO ×2 (13:30)
[2019-02-14] MEDS ORDERED: GLUCAGON 1 MG INJ IM (13:30)
[2019-02-14] MEDS ORDERED: GLUCOSE GEL 15 GRAM TUBE BUCCAL (13:30)
[2019-02-14 18:12] LABS: ADD UMIC YES; UR ASCORBIC ACID NEGATIVE (NEGATIVE); UR BILIRUBIN (Dip) NEGATIVE (NEGATIVE); UR BLOOD (Dip) 1+ mg/dL (NEGATIVE); UR CLARITY CLEAR (CLEAR); UR COLOR YELLOW (YELLOW); UR GLUCOSE (Dip) NEGATIVE (NEGATIVE); UR KETONES (Dip) NEGATIVE (NEGATIVE); UR LEUKOCYTE ESTERASE (Dip) NEGATIVE Leu/ul (NEGATIVE); UR NITRITE (Dip) NEGATIVE (NEGATIVE); UR RBC 2 /HPF (0-5); UR SPECIFIC GRAVITY (Dip) 1.013 (1.003-1.030); UR TOTAL PROTEIN (Dip) NEGATIVE (NEGATIVE); UR UROBILINOGEN (Dip) NEGATIVE (NEGATIVE); UR WBC 0 /HPF (0-5)
[2019-02-14] MEDS: AL HYDROX/MG HYDROX/SIMETH 30 ML CUP PO (20:11)
[2019-02-15] MEDS: ACCU-CHEK XX (01:11)
[2019-02-15] MEDS: ALPRAZOLAM 0.25 MG TAB PO (03:06)
[2019-02-15] MEDS: PANTOPRAZOLE (EC) 40 MG TAB PO (05:27)
[2019-02-15] MEDS: INSULIN ASPART [NOVOLOG] 3 ML PEN SC ×2 (08:00→12:00)
[2019-02-15] MEDS: ISOSORBIDE MONONITRATE(SR)30 MG TAB PO (09:18)
[2019-02-15] MEDS: MAGNESIUM OXIDE 400 MG TAB PO (09:18)
[2019-02-15] MEDS: METOPROLOL (XL) 100 MG TAB PO (09:19)
[2019-02-15] MEDS: AMIODARONE 200 MG TAB PO ×2 (09:19→12:45)
[2019-02-15] MEDS: APIXABAN 5 MG TABLET PO (09:20)
[2019-02-15] MEDS: LOSARTAN 50 MG TAB PO (09:20)
== END 2019-02-15 16:25 | disposition home or self-care (01) | DRG 310 ==
LOC: 6WM 02-12 09:43 → E/R 07:13 → 6WM 08:43
DX: I48.0 Paroxysmal atrial fibrillation (principal); I10 Essential (primary) hypertension; E78.5 Hyperlipidemia, unspecified; E11.9 Type 2 diabetes mellitus without complications; R94.31 Abnormal electrocardiogram [ECG] [EKG]; R42 Dizziness and giddiness; M10.9 Gout, unspecified; Z79.01 Long term (current) use of anticoagulants; Z79.84 Long term (current) use of oral hypoglycemic drugs
CPT/HCPCS: 36415; 71045; 78452; 80048; 80053; 80061; 81001; 82550; 82553; 82962; 83036; 83735; 84100; 84443; 84484; 85025; 85610; 85730; 93005; 93017; 93306; 96374; 99285-25

== ENCOUNTER 2019-03-07 18:55 | Emergency (ER) | payer MEDICARE, OTHER ==
[2019-03-07 19:34] LABS: ADD MAN DIFF? NO
[2019-03-07 19:38] LABS: BASOPHILS % 0.6 % (0.0-2.0); EOSINOPHILS # 0.1 10^3/ul (0.0-0.5); EOSINOPHILS % 2.1 % (0.0-7.0); HEMATOCRIT 41.8 % (37.0-47.0); HEMOGLOBIN 14.3 g/dl (12.0-16.0); LYMPHOCYTES # 1.4 10^3/ul (0.8-2.9); LYMPHOCYTES % 21.4 % (15.0-51.0); MEAN CORPUSCULAR HEMOGLOBIN 31.8 pg (29.0-33.0); MEAN CORPUSCULAR HGB CONC 34.2 g/dl (32.0-37.0); MEAN CORPUSCULAR VOLUME 93.1 fl (82.0-101.0); MEAN PLATELET VOLUME 9.5 fl (7.4-10.4); MONOCYTE # 0.6 10^3/ul (0.3-0.9); MONOCYTES % 8.2 % (0.0-11.0); NEUTROPHIL # 4.5 10^3/ul (1.6-7.5); NEUTROPHILS % 67.4 % (39.0-77.0); PLATELET COUNT 295 10^3/UL (140-415); RED BLOOD COUNT 4.49 10^6/ul (4.20-5.40); RED CELL DISTRIBUTION WIDTH 11.9 % (11.5-14.5)
[2019-03-07 19:38] LABS: WHITE BLOOD COUNT 6.7 10^3/ul (4.8-10.8)
[2019-03-07 19:46] LABS: ADD UMIC YES; UR ASCORBIC ACID NEGATIVE (NEGATIVE); UR BACTERIA FEW /HPF (NONE SEEN); UR BILIRUBIN (Dip) NEGATIVE (NEGATIVE); UR BLOOD (Dip) 1+ mg/dL (NEGATIVE); UR CLARITY CLEAR (CLEAR); UR COLOR YELLOW (YELLOW); UR GLUCOSE (Dip) NEGATIVE (NEGATIVE); UR KETONES (Dip) NEGATIVE (NEGATIVE); UR LEUKOCYTE ESTERASE (Dip) 3+ Leu/ul (NEGATIVE); UR NITRITE (Dip) NEGATIVE (NEGATIVE); UR RBC 1 /HPF (0-5); UR SPECIFIC GRAVITY (Dip) 1.006 (1.003-1.030); UR SQUAMOUS EPITHELIAL CELL FEW /HPF (FEW); UR TOTAL PROTEIN (Dip) NEGATIVE (NEGATIVE); UR UROBILINOGEN (Dip) NEGATIVE (NEGATIVE); UR WBC 8 /HPF (0-5)
[2019-03-07] MEDS: LIDOCAINE/MYLANTA 40 ML BTL PO (19:49)
[2019-03-07] MEDS: BELLADONNA/PHENOBARBITAL TAB PO (19:49)
[2019-03-07] MEDS: FAMOTIDINE 20 MG TAB PO (19:49)
[2019-03-07 19:55] LABS: ALANINE AMINOTRANSFERASE 22 IU/L (13-69); ALBUMIN 4.2 g/dl (3.3-4.9); ALKALINE PHOSPHATASE 89 IU/L (42-121); ANION GAP 10 (5-13); ASPARTATE AMINO TRANSFERASE 23 IU/L (15-46); BILIRUBIN,INDIRECT 0.6 mg/dl (0-1.1); BILIRUBIN,TOTAL 0.6 mg/dl (0.2-1.3); BLOOD UREA NITROGEN 19 mg/dl (7-20); CALCIUM 9.3 mg/dl (8.4-10.2); CARBON DIOXIDE 31 mmol/L (21-31); CHLORIDE 90 mmol/L (97-110); CREATININE 1.12 mg/dl (0.44-1.00); GLUCOSE 118 mg/dl (70-220); LIPASE 38 U/L (23-300); POTASSIUM 3.5 mmol/L (3.5-5.1); SODIUM 131 mmol/L (135-144)
[2019-03-07] MEDS: ACETAMINOPHEN 500 MG TAB PO (21:32)
== END 2019-03-07 21:40 | disposition home or self-care (01) ==
LOC: E/R 18:55
DX: K29.50 Unspecified chronic gastritis without bleeding (principal); E87.1 Hypo-osmolality and hyponatremia; I10 Essential (primary) hypertension; Z79.01 Long term (current) use of anticoagulants; Z79.84 Long term (current) use of oral hypoglycemic drugs
CPT/HCPCS: 80053; 81001; 83690; 85025; 99283

== ENCOUNTER 2019-03-08 21:41 | Emergency (ER) | payer MEDICARE, OTHER ==
[2019-03-08] MEDS: LIDOCAINE/MYLANTA 40 ML BTL PO (22:48)
[2019-03-08] MEDS: BELLADONNA/PHENOBARBITAL TAB PO (22:48)
[2019-03-08] MEDS: FAMOTIDINE 20 MG TAB PO (22:48)
[2019-03-08] MEDS: ONDANSETRON 4 MG INJ IV (22:48)
== END 2019-03-09 01:41 | disposition home or self-care (01) ==
LOC: E/R 21:41
DX: K29.50 Unspecified chronic gastritis without bleeding (principal); N30.00 Acute cystitis without hematuria; I10 Essential (primary) hypertension; Z79.84 Long term (current) use of oral hypoglycemic drugs
CPT/HCPCS: 93005; 96374; 99284-25